=== PATIENT | male | born 1960 | race American Indian/Alaskan Native ===

== ENCOUNTER 2021-03-30 12:43 | Emergency (ER) | payer OTHER ==
[2021-03-30 13:04] VITALS: BP 141/90
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
--- NOTE | 2021-03-30 15:34 | XRay Report ---
Left shoulder 3 views INDICATION: Pain FINDINGS: No acute fracture or dislocation. AC joint appears normal. Signer Name: Devendra Wyatt MD Signed: 03/30/2021 3:30 PM Workstation Name: [id number]
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
== END 2021-03-30 16:47 | disposition home or self-care (01) ==
LOC: ED 12:43
DX: S16.1XXA Strain of muscle, fascia and tendon at neck level, initial encounter (principal); S09.90XA Unspecified injury of head, initial encounter; S39.012A Strain of muscle, fascia and tendon of lower back, initial encounter; S29.012A Strain of muscle and tendon of back wall of thorax, initial encounter; S40.012A Contusion of left shoulder, initial encounter; X58.XXXA Exposure to other specified factors, initial encounter; Y93.89 Activity, other specified; Y92.89 Other specified places as the place of occurrence of the external cause; Y99.8 Other external cause status
CPT/HCPCS: 70450; 72072; 72100; 72125; 99284